=== PATIENT | female | born 1960 | race African-American/Black ===

== ENCOUNTER 2016-08-13 22:20 | Emergency (ER) | payer MEDICAID ==
[~2016-08-13] VITALS: Ht 157.5 cm; Wt 62.0 kg
[2016-08-14 01:10] VITALS: BP 160/96
== END 2016-08-14 04:00 | disposition home or self-care (01) ==
LOC: ER 22:20
DX: J02.9 Acute pharyngitis, unspecified (principal); K08.89 Other specified disorders of teeth and supporting structures; R68.84 Jaw pain
CPT/HCPCS: 99283

== ENCOUNTER 2018-05-15 09:20 | Emergency (ER) | payer MEDICAID ==
[~2018-05-15] VITALS: Ht 157.5 cm; Wt 82.0 kg
[2018-05-15 09:33] VITALS: BP 148/81
[2018-05-15] MEDS ORDERED: PREDNISONE 20MG TABLET PO ONE (10:00)
[2018-05-15] MEDS ORDERED: DIPHENHYDRAMINE 50MG CAPSULE PO ONE (10:00)
[2018-05-15] MEDS ORDERED: FAMOTIDINE 20MG TABLET PO ONE (10:00)
== END 2018-05-15 12:22 | disposition home or self-care (01) ==
LOC: ER 09:37
DX: L50.9 Urticaria, unspecified (principal); T45.0X5A Adverse effect of antiallergic and antiemetic drugs, initial encounter; I10 Essential (primary) hypertension; Z88.0 Allergy status to penicillin; Z98.51 Tubal ligation status; Y92.018 Other place in single-family (private) house as the place of occurrence of the external cause
CPT/HCPCS: 71045; 99284; J7512; Q0163

== ENCOUNTER 2021-12-11 12:03 | Emergency (ER) | payer MEDICAID ==
[~2021-12-11] VITALS: Ht 157.5 cm; Wt 74.0 kg
[2021-12-11 12:26] VITALS: BP 146/82
[2021-12-11] MEDS ORDERED: HYDR28OI2 TP (20:37)
== END 2021-12-11 20:55 | disposition home or self-care (01) ==
LOC: ER 13:50
DX: S90.561A Insect bite (nonvenomous), right ankle, initial encounter (principal); L30.9 Dermatitis, unspecified; W57.XXXA Bitten or stung by nonvenomous insect and other nonvenomous arthropods, initial encounter; Y93.89 Activity, other specified; Y92.017 Garden or yard in single-family (private) house as the place of occurrence of the external cause
CPT/HCPCS: 99282

== ENCOUNTER 2022-07-24 01:10 | Emergency (ER) | payer MEDICAID ==
[~2022-07-24] VITALS: Ht 157.5 cm; Wt 71.0 kg
[~2022-07-24 01:10] MED LIST: HYDR28OI2 TP
[2022-07-24 03:45] LABS: HEMATOCRIT. 39.6 % (36.0-48.0); HEMOGLOBIN. 13.1 g/dL (12.0-16.0); MEAN CORPUSCULAR HEMOGLOBIN 27.1 pg (28.0-32.0); MEAN CORPUSCULAR VOLUME 81.7 fL (81.0-99.0); MEAN PLATELET VOLUME 8.1 fl (7.4-10.4); PLATELET 234 x1000/uL (130-400); RED BLOOD CELL COUNT 4.85 mill/uL (4.2-5.4); RED CELL DISTRIBUTION WIDTH 13.8 % (11.6-14.6)
[2022-07-24 03:51] LABS: CHLORIDE 114 mEq/L (98-107)
[2022-07-24 04:00] VITALS: BP 140/74
[2022-07-24 18:12] LABS: PLATELET ESTIMATE NORMAL
== END 2022-07-24 05:43 | disposition home or self-care (01) ==
LOC: ER 01:10
DX: R00.0 Tachycardia, unspecified (principal); Z88.1 Allergy status to other antibiotic agents
CPT/HCPCS: 36415; 71045; 80053; 83880; 84484; 85025; 93005; 99285